=== PATIENT | female | born 1965 | race Caucasian/White ===

== ENCOUNTER 2017-05-13 10:13 | Emergency (ER) | payer BC, OTHER ==
--- NOTE | 2017-05-13 11:32 | RAD ---
INDICATION: Right small finger injury COMPARISON: None. TECHNIQUE: 3 views of the right small finger were obtained. FINDINGS: There is a comminuted and impacted fracture involving the distal pole of the middle phalanx of the right small finger. The remaining visualized bones are intact and appropriately aligned. IMPRESSION: IMPACTED, COMMINUTED FRACTURE INVOLVING THE DISTAL POLE OF THE RIGHT SMALL FINGER MIDDLE PHALANX.
--- NOTE | 2017-05-13 11:41 | ED ---
Upper Extremity Pain - HPI Summary HPI Summary: 51 female presents to ED with complaints of right pinky finger pain, swelling, bruising after and injury that she sustained yesterday. States she tripped when going up her stairs and tried catching herself and hurt her pinky finger. Denies any wrist, hand or other finger pain/injury. Has been taking advil with some relief. Did apply her own splint at home. No other complaints. Not on blood thinners. No other PMHx. Any touch or movement makes it worse. Is right hand dominant. - History of Current Complaint Chief Complaint: EDExtremityUpper Stated Complaint: RT PINKY FINGER INJURY Time Seen by Provider: 05/13/17 10:38 Hx Obtained From: Patient Mechanism Of Injury: Fall From A Standing Position, Twisted Onset/Duration: Started Days Ago - yesterday, Traumatic Timing: Constant Severity Initially: Moderate Severity Currently: Moderate Pain Location: Finger - right pinky Character: Aching Aggravating Factor(s): Movement Alleviating Factor(s): Rest - splint, OTC Meds - advil Associated Signs & Symptoms: Positive: Redness, Bruising. Negative: Weakness, Numbness/Tingling Related History: Dominant Hand Right - Allergies/Home Medications Allergies/Adverse Reactions: Allergies Allergy/AdvReac Type Severity Reaction Status Date / Time No Known Allergies Allergy Verified 05/13/17 10:26 PMH/Surg Hx/FS Hx/Imm Hx Endocrine/Hematology History: Denies: Hx Anticoagulant Therapy, Hx Diabetes Cardiovascular History: Denies: Hx Hypertension - Cancer History Hx Chemotherapy: No Hx Radiation Therapy: No - Surgical History Surgery Procedure, Year, and Place: n/a - Immunization History Immunizations Up to Date: Yes Infectious Disease History: No Infectious Disease History: Denies: Traveled Outside the [place] in Last 30 Days - Family History Known Family History: Positive: None - Social History Alcohol Use: Rare Substance Use Type: Reports: None Smoking Status (MU): Never Smoked Tobacco Review of Systems Constitutional: Negative Respiratory: Negative Gastrointestinal: Negative Positive: Arthralgia, Myalgia, Decreased ROM, Edema - right small finger Positive: Bruising All Other Systems Reviewed And Are Negative: Yes Physical Exam Triage Information Reviewed: Yes Vital Signs On Initial Exam: Initial Vitals Temp Pulse Resp BP Pulse Ox 99 F 89 14 114/70 96 05/13/17 10:26 05/13/17 10:26 05/13/17 10:26 05/13/17 10:05/13/17 10:26 Vital Signs Reviewed: Yes Appearance: Positive: Well-Appearing, No Pain Distress, Well-Nourished Skin: Positive: Warm, Skin Color Reflects Adequate Perfusion, Dry, Other - bruising right pinky. Negative: Cold, Cyanosis @ Respiratory/Lung Sounds: Positive: Clear to Auscultation, Breath Sounds Present. Negative: Rales, Rhonchi, Wheezes Cardiovascular: Positive: Normal, RRR, Pulses are Symmetrical in both Upper and Lower Extremities - 2+ radial. Negative: Murmur, Rub Musculoskeletal: Positive: Limited @, Abnormal @, Pain @ - right fifth digit at middle phalanx with edema and pain with any movement or touch, Edema Right - fifth phalanx, Other - rest of MSK normal and without tenderness/swelling/ bruising. rest of hand and fingers/wrist normal ROM/strength PE Neurological: Positive: Normal, Sensory/Motor Intact, Alert, Oriented to Person Place, Time Diagnostics - Vital Signs Vital Signs Temp Pulse Resp BP Pulse Ox 05/13/17 10:26 99 F 89 14 114/70 96 - Laboratory Lab Statement: Any lab studies that have been ordered have been reviewed, and results considered in the medical decision making process. - Radiology right small finger Xray Interpretation: Positive (See Comments) - IMPACTED, COMMINUTED FRACTURE INVOLVING THE DISTAL POLE OF THE RIGHT SMALL FINGER MIDDLE PHALANX. Radiology Interpretation Completed By: Radiologist Course/Dx - Course Course Of Treatment: xray obtained and postive for fracture of small finger middle phalanx. continue analgesic. RICE and splint. splint applied without complication. no other concerns. no other complaints. follow up ortho. aware of worsening signs and symptoms to watch out for. - Diagnoses Differential Diagnosis/HQI/PQRI: Positive: Fracture (Closed), Strain, Sprain Provider Diagnoses: Fracture of phalanx of little finger Discharge - Discharge Plan Condition: Good Disposition: HOME Patient Education Materials: Finger Fracture (ED) Referrals: Vinicius Villar MD [Medical Doctor] - Nadira Mims MD [Primary Care Provider] - Additional Instructions: Rest, ice and elevate. Aleve or tylenol as needed for pain/inflammation. Keep splint applied until seen by orthopedics. Recommend to avoid getting splint wet. Refrain from use. Follow up with ortho, call to make an appointment. Any new or worsening symptoms please seek medical attention.
[2017-05-13 12:23] VITALS: BP 114/74
== END 2017-05-13 12:19 | disposition home or self-care (01) ==
LOC: ED 10:13
DX: S62.606A Fracture of unspecified phalanx of right little finger, initial encounter for closed fracture (principal); W19.XXXA Unspecified fall, initial encounter; Y92.9 Unspecified place or not applicable
CPT/HCPCS: 73140; 99282